=== PATIENT | female | born 1995 | race African-American/Black ===

== ENCOUNTER 2022-09-08 12:25 | Outpatient (CLI) | payer OTHER | END 2022-09-08 12:26 | disposition home or self-care (01) | LOC: CSHULT 12:25 | PROVIDERS: ATTEND Family Medicine | DX: O09.892 Supervision of other high risk pregnancies, second trimester (principal); Z3A.20 20 weeks gestation of pregnancy | CPT/HCPCS: 76805 ==

== ENCOUNTER 2023-01-12 03:59 | Inpatient (IN) | payer OTHER ==
[2023-01-12] MEDS ORDERED: Acetaminophen 500 MG TAB PO PRN (04:39)
[2023-01-12] MEDS ORDERED: Promethazine HCl 25 MG/ML VIAL IM PRN ×3 (04:39→17:49)
[2023-01-12] MEDS ORDERED: Lidocaine 1% (PF) 30 ML VIAL SC PRN (04:39)
[2023-01-12] MEDS ORDERED: Butorphanol Tartrate 1 MG/ML VIAL SLOW IVP PRN (04:39)
[2023-01-12] MEDS ORDERED: Ondansetron PF 4 MG/2 ML Vial IVP PRN ×3 (04:39→17:49)
[2023-01-12] MEDS ORDERED: hydrALAZINE 20 MG/ML VIAL SLOW IVP PRN ×3 (04:39→17:49)
[2023-01-12] MEDS ORDERED: Ibuprofen 800 MG TAB PO PRN (04:39)
[2023-01-12] MEDS ORDERED: Misoprostol 200 MCG TAB PR PRN (04:39)
[2023-01-12] MEDS ORDERED: Carboprost 250 MCG/ML AMP IM PRN (04:39)
[2023-01-12] MEDS ORDERED: Methylergonovine 0.2 MG/ML VIAL IM PRN (04:39)
[2023-01-12] MEDS ORDERED: Magnesium Sulfate 20 gm/500 ml 20 GM/500 ML BAG ONE (04:43)
[2023-01-12] MEDS ORDERED: hydrALAZINE 20 MG/ML VIAL ONE (04:43)
[2023-01-12] MEDS ORDERED: NS w/ Oxytocin 30 units 500 ML IV SCH ×2 (04:45)
[2023-01-12] MEDS ORDERED: Penicillin G Potassium 5 MILL.UNITS in Sodium Chloride 0.9% 100 ML IVPB SCH (04:45)
[2023-01-12 04:48] VITALS: BMI 55.7
[2023-01-12] MEDS ORDERED: Labetalol HCl 100 MG/20 ML VIAL SLOW IVP PRN ×2 (04:57→17:49)
[2023-01-12] MEDS ORDERED: Calcium Gluc 4.6 MEQ/10 ML (100 MG/ML) SLOW IVP PRN ×2 (04:57→17:49)
[2023-01-12] MEDS ORDERED: Lorazepam 2 MG/ML VIAL SLOW IVP PRN ×2 (04:57→17:49)
[2023-01-12] MEDS ORDERED: Magnesium Sulfate 20 gm/500 ml 20 GM/500 ML BAG IVPB SCH (05:00)
[2023-01-12 05:02] LABS: Hemoglobin 11.6 g/dL (12.0-15.5); Mean Corpuscular HGB CONC 32.3 g/dL (32.0-36.0); Mean Corpuscular Hemoglobin 26.2 pg (27.0-33.0); Mean Corpuscular Volume 81.2 fl (81.6-98.3); Mean Platelet Volume 9.6 fl (7.4-10.4); Platelet Count 433 10x3/uL (150-450); RBC Distribution Width 15.8 % (11.5-14.5); Red Blood Cell (RBC) Count 4.42 10x6/uL (3.90-5.03); White Blood Cell (WBC) Count 23.5 10x3/uL (3.5-10.5)
[2023-01-12] MEDS ORDERED: Azithromycin 500 MG VIAL ONE (05:10)
[2023-01-12] MEDS ORDERED: CEFAZOLIN 2 GM VIAL ONE (05:10)
[2023-01-12] MEDS ORDERED: Bicitra 30 ML UDCUP PO PRN (05:10)
[2023-01-12] MEDS ORDERED: Famotidine/PF 20 mg/2ml Vial SLOW IVP PRN (05:10)
[2023-01-12] MEDS ORDERED: CEFAZOLIN 2 GM in Sodium Chloride 0.9% 100 ML IVPB SCH (05:15)
[2023-01-12] MEDS ORDERED: Azithromycin 500 MG in Sodium Chloride 0.9% 250 ML 250 ML IVPB SCH (05:15)
[2023-01-12] MEDS ORDERED: Oxytocin 10 UNITS/ML VIAL ONE (05:19)
[2023-01-12] MEDS ORDERED: Succinylcholine 200 MG/10 ml SYRINGE FS ONE (05:24)
[2023-01-12] MEDS ORDERED: PROPOFOL 20 ML ONE (05:25)
[2023-01-12 05:35] LABS: Syphilis Antibody Nonreactive (Nonreactive); Syphilis Antibody Index 0.06 S/CO (<1.00 Non-Reactive)
[2023-01-12 05:37] LABS: HBSAg Index 0.13 S/CO (0-0.99); Hep B Surf Ag Non-Reactive S/CO (NonReactive)
[2023-01-12] MEDS ORDERED: Fentanyl 100 MCG/2 ML VIAL ONE (05:38)
[2023-01-12 05:46] LABS: ALT (SGPT) 55 U/L (8-55); AST (SGOT) 69 U/L (5-34); Albumin 3.6 g/dL (3.5-5.0); Alkaline Phosphatase 191 U/L (40-110); Anion Gap 14 mmol/L (10-20); BUN (Urea Nitrogen) 13 mg/dL (7.0-18.7); Bilirubin, Total 0.5 mg/dL (0.2-1.2); Calc. Creatinine Clearance 267 mL/min (70-130); Calcium 9.2 mg/dL (7.8-10.44); Carbon Dioxide 20 mmol/L (22-29); Chloride 106 mmol/L (98-107); Estimated GFR 115; Globulin 3.5 g/dL (2.4-3.5); Glucose 100 mg/dL (70-105); Potassium 4.1 mmol/L (3.5-5.1); Protein, Total 7.1 g/dL (6.0-8.3); Sodium 136 mmol/L (136-145)
[2023-01-12] MEDS ORDERED: Rocuronium Bromide 10 MG/ML (10ML VIAL) ONE (05:52)
[2023-01-12] MEDS ORDERED: SUGAMMADEX SODIUM 200 MG/2 ML VIAL ONE (06:02)
[2023-01-12 06:39] LABS: RapidComm Collect By CBN
[2023-01-12 06:40] LABS: RapidComm Collect By CBN; pH (Cord, venous) 6.973 (7.250-7.350)
[2023-01-12] MEDS ORDERED: Fentanyl 100 MCG/2 ML VIAL SLOW IVP PRN (06:58)
[2023-01-12] MEDS ORDERED: Ondansetron HCl/PF 4 MG/2 ML Vial IVP PRN (06:58)
[2023-01-12] MEDS ORDERED: Meperidine HCl/PF 25 MG/ML VIAL SLOW IVP PRN (06:58)
[2023-01-12] MEDS ORDERED: FENTANYL 500 MCG/10 ML VIAL 2,000 MCG in Sodium Chloride 0.9% 60 ML IV PRN (06:58)
[2023-01-12] MEDS ORDERED: diphenhydrAMINE 25 MG CAP PO PRN ×2 (06:58→17:49)
[2023-01-12] MEDS ORDERED: diphenhydrAMINE 50 MG/ML VIAL IVP PRN (06:58)
[2023-01-12] MEDS ORDERED: Naloxone HCl 0.4 mg/ml Vial IV PRN (06:58)
[2023-01-12] MEDS ORDERED: diphenhydrAMINE 50 MG/ML VIAL IM PRN (06:58)
[2023-01-12] MEDS ORDERED: Zolpidem Tartrate 5 MG TAB PO PRN (06:58)
[2023-01-12] MEDS ORDERED: Ketorolac Tromethamine 30 MG/ML VIAL IVP SCH (07:00)
[2023-01-12] MEDS ORDERED: Communication Order-Pharmacy FS PRN (07:00)
[2023-01-12] MEDS: FENTANYL 500 MCG/10 ML VIAL 1,000 MCG in Sodium Chloride 0.9% 30 ML IV PRN ×2 (08:01→23:39)
[2023-01-12 08:18] LABS: SARS-CoV-2 NAA Rapid Test Not Detected (NotDetected)
[2023-01-12] MEDS ORDERED: Penicillin G 2.5 MILL.units 2.5 MILL.UNITS in Premix Bag 1 BAG IVPB SCH (09:00)
[2023-01-12] MEDS: Magnesium Sulfate 20 gm/500 ml 20 GM/500 ML BAG IVPB SCH ×2 (12:12→23:15)
[2023-01-12] MEDS: Lactated Ringer's 1,000 ML IV SCH (12:15)
[2023-01-12] MEDS ORDERED: Lanolin Ointment 7 GM TUBE TOP PRN (17:49)
[2023-01-12] MEDS ORDERED: Boostrix 0.5 ML (Tdap) VIAL (>/=7 yrs of age) IM ONE (17:49)
[2023-01-12] MEDS ORDERED: Bisacodyl 10 MG SUPP PR PRN (17:49)
[2023-01-12] MEDS ORDERED: Prenatal Vitamin 1 TAB PO SCH (18:15)
[2023-01-12] MEDS ORDERED: Docusate 100 MG CAP PO SCH (18:15)
[2023-01-12] MEDS ORDERED: Ferrous Sulfate 325 MG TAB PO SCH (18:15)
[2023-01-12] MEDS ORDERED: NIFEdipine XL 30 MG TAB PO SCH (18:15)
[2023-01-12] MEDS: CEFAZOLIN 2 GM in Sodium Chloride 0.9% 100 ML IVPB SCH (18:38)
[2023-01-12] MEDS: metroNIDAZOLE 500 MG in Premix Bag 1 BAG IVPB SCH (21:17)
[2023-01-13] MEDS: CEFAZOLIN 2 GM in Sodium Chloride 0.9% 100 ML IVPB SCH ×3 (02:59→19:23)
[2023-01-13 04:26] LABS: Hemoglobin 9.5 g/dL (12.0-15.5); Mean Corpuscular HGB CONC 32.4 g/dL (32.0-36.0); Mean Corpuscular Volume 80.3 fl (81.6-98.3); Platelet Count 235 10x3/uL (150-450); RBC Distribution Width 16.3 % (11.5-14.5); Red Blood Cell (RBC) Count 3.65 10x6/uL (3.90-5.03)
[2023-01-13] MEDS: metroNIDAZOLE 500 MG in Premix Bag 1 BAG IVPB SCH ×3 (04:59→21:05)
[2023-01-13] MEDS: Prenatal Vitamin 1 TAB PO SCH (10:02)
[2023-01-13] MEDS: Docusate 100 MG CAP PO SCH ×2 (10:03→21:05)
[2023-01-13] MEDS: Ferrous Sulfate 325 MG TAB PO SCH ×2 (10:03→21:05)
[2023-01-13] MEDS: NIFEdipine XL 30 MG TAB PO SCH (10:03)
[2023-01-13] MEDS: HYDROcodone/Acetaminophen 5/325 mg Tablet PO PRN ×2 (10:35→15:28)
[2023-01-13] MEDS: Ibuprofen 800 MG TAB PO SCH ×2 (14:45→21:05)
[2023-01-13] MEDS: Simethicone Chewable 80 MG TAB PO PRN (15:28)
[2023-01-14] MEDS: CEFAZOLIN 2 GM in Sodium Chloride 0.9% 100 ML IVPB SCH ×3 (01:53→18:52)
[2023-01-14] MEDS: metroNIDAZOLE 500 MG in Premix Bag 1 BAG IVPB SCH ×3 (04:03→20:30)
[2023-01-14] MEDS: HYDROcodone/Acetaminophen 5/325 mg Tablet PO PRN ×2 (04:08→12:28)
[2023-01-14] MEDS: Ibuprofen 800 MG TAB PO SCH ×3 (05:30→21:35)
[2023-01-14] MEDS: Ferrous Sulfate 325 MG TAB PO SCH ×2 (09:35→21:35)
[2023-01-14] MEDS: NIFEdipine XL 30 MG TAB PO SCH (09:35)
[2023-01-14] MEDS: Prenatal Vitamin 1 TAB PO SCH (09:35)
[2023-01-14] MEDS: Docusate 100 MG CAP PO SCH ×2 (09:35→21:34)
[2023-01-14] MEDS: Simethicone Chewable 80 MG TAB PO PRN (12:28)
[2023-01-15] MEDS: CEFAZOLIN 2 GM in Sodium Chloride 0.9% 100 ML IVPB SCH ×3 (02:35→17:36)
[2023-01-15] MEDS: metroNIDAZOLE 500 MG in Premix Bag 1 BAG IVPB SCH ×3 (04:57→19:45)
[2023-01-15] MEDS: HYDROcodone/Acetaminophen 5/325 mg Tablet PO PRN ×4 (05:12→17:37)
[2023-01-15] MEDS: Ibuprofen 800 MG TAB PO SCH ×3 (06:19→21:47)
[2023-01-15] MEDS: Prenatal Vitamin 1 TAB PO SCH (08:00)
[2023-01-15] MEDS: NIFEdipine XL 30 MG TAB PO SCH (08:00)
[2023-01-15] MEDS: Ferrous Sulfate 325 MG TAB PO SCH ×2 (08:00→21:47)
[2023-01-15] MEDS: Docusate 100 MG CAP PO SCH ×2 (08:01→21:47)
[2023-01-15] MEDS: cloNIDine 0.1 MG TAB PO PRN ×2 (08:01→11:44)
[2023-01-16] MEDS: CEFAZOLIN 2 GM in Sodium Chloride 0.9% 100 ML IVPB SCH ×2 (02:39→10:41)
[2023-01-16] MEDS: metroNIDAZOLE 500 MG in Premix Bag 1 BAG IVPB SCH ×2 (04:41→12:48)
[2023-01-16] MEDS: Ibuprofen 800 MG TAB PO SCH ×3 (06:11→23:37)
[2023-01-16] MEDS: Docusate 100 MG CAP PO SCH ×2 (10:29→20:02)
[2023-01-16] MEDS: Ferrous Sulfate 325 MG TAB PO SCH ×2 (10:29→20:02)
[2023-01-16] MEDS: NIFEdipine XL 30 MG TAB PO SCH (10:30)
[2023-01-16] MEDS: Prenatal Vitamin 1 TAB PO SCH (10:30)
[2023-01-16] MEDS: cloNIDine 0.1 MG TAB PO PRN ×3 (13:03→20:03)
[2023-01-16] MEDS ORDERED: NIFEdipine XL 30 MG TAB PO SCH (20:00)
[2023-01-16] MEDS: Simethicone Chewable 80 MG TAB PO PRN (20:03)
[2023-01-16] MEDS: metroNIDAZOLE 500 MG TAB PO SCH (20:06)
[2023-01-16] MEDS: HYDROcodone/Acetaminophen 5/325 mg Tablet PO PRN (23:37)
[2023-01-17] MEDS: Simethicone Chewable 80 MG TAB PO PRN (05:42)
[2023-01-17] MEDS: Ibuprofen 800 MG TAB PO SCH ×2 (05:42→14:53)
[2023-01-17] MEDS: HYDROcodone/Acetaminophen 5/325 mg Tablet PO PRN (05:44)
[2023-01-17] MEDS: cloNIDine 0.1 MG TAB PO PRN ×2 (06:44→09:07)
[2023-01-17] MEDS: Lactated Ringer's 1,000 ML IV SCH (07:41)
[2023-01-17] MEDS: Ferrous Sulfate 325 MG TAB PO SCH (07:59)
[2023-01-17] MEDS: metroNIDAZOLE 500 MG TAB PO SCH ×2 (07:59→14:54)
[2023-01-17] MEDS: Prenatal Vitamin 1 TAB PO SCH (07:59)
[2023-01-17] MEDS: Cephalexin 500 MG CAP PO SCH ×2 (07:59→14:54)
[2023-01-17] MEDS: Docusate 100 MG CAP PO SCH (08:00)
[2023-01-17] MEDS ORDERED: NIFEdipine XL 60 MG TAB PO SCH (09:00)
[2023-01-17 16:01] VITALS: BP 135/70; TEMP 98.9
== END 2023-01-17 18:30 | disposition home or self-care (01) | DRG 786 ==
LOC: CSHLD/OP 03:59 → CSHLD 04:30 → CSHPP 01-13 08:45
PROVIDERS: ADMIT Family Medicine; ATTEND Family Medicine
PROC: 10D00Z1 Extraction of Products of Conception, Low, Open Approach (ICD-10-PCS; principal; 2023-01-12)
PROC: 10H07YZ Insertion of Other Device into Products of Conception, Via Natural or Artificial Opening (ICD-10-PCS; 2023-01-12)
PROC: 3E0P05Z Introduction of Adhesion Barrier into Female Reproductive, Open Approach (ICD-10-PCS; 2023-01-12)
PROC: 4A133R1 Monitoring of Arterial Saturation, Peripheral, Percutaneous Approach (ICD-10-PCS; 2023-01-12)
DX: O14.14 Severe pre-eclampsia complicating childbirth (principal); O41.1230 Chorioamnionitis, third trimester, not applicable or unspecified; Z20.822 Contact with and (suspected) exposure to COVID-19; O76 Abnormality in fetal heart rate and rhythm complicating labor and delivery; Z3A.38 38 weeks gestation of pregnancy; Z37.0 Single live birth; O77.0 Labor and delivery complicated by meconium in amniotic fluid; Z88.6 Allergy status to analgesic agent; O99.214 Obesity complicating childbirth; E66.9 Obesity, unspecified; O42.02 Full-term premature rupture of membranes, onset of labor within 24 hours of rupture
CPT/HCPCS: 36415; 51702; 80053; 82805; 85027; 86780; 86850; 86900; 86901; 87340; 88307; 99285; J0360; J2405; J2540; J2590; J2704; J3010; J3475; J3490; J7120; U0002